=== PATIENT | male | born 1950 | race Caucasian/White ===

== ENCOUNTER 2016-04-12 20:44 | Emergency (ER) | payer OTHER ==
[2016-04-12 20:57] VITALS: BP 114/73
--- NOTE | 2016-04-12 22:16 | ED ---
Laceration/Wound HPI - HPI Summary HPI Summary: 65 M presents with chin laceration this evening. He was opening a wine bottle with a corkscrew when it hit him in the chin. He denies any numbness or tingling. His last tetanus he believes was in 5 years. - History of Current Complaint Stated Complaint: CHIN LAC Time Seen by Provider: 04/12/16 21:32 Pain Intensity: 2 - Allergy/Home Medications Allergies/Adverse Reactions: Allergies Allergy/AdvReac Type Severity Reaction Status Date / Time No Known Allergies Allergy Verified 01/17/12 01:50 PMH/Surg Hx/FS Hx/Imm Hx Endocrine/Hematology History: Denies: Hx Anticoagulant Therapy Cardiovascular History: Denies: Hx Pacemaker/ICD GI History: Comment Only: Other GI Disorders - RLQ PAIN Sensory History: Denies: Hx Contacts or Glasses, Hx Hearing Aid Opthamlomology History: Denies: Hx Contacts or Glasses Psychiatric History: Denies: Hx Panic Disorder - Surgical History Surgery Procedure, Year, and Place: APPENDIX FALL 2011,ORAL SURGERY, SKIN [facility] 2012 Infectious Disease History: No Infectious Disease History: Denies: Traveled Outside the [place] in Last 30 Days - Family History Known Family History: Negative: Cardiac Disease - Social History Occupation: Employed Full-time Alcohol Use: None Substance Use Type: Reports: None Smoking Status (MU): Never Smoked Tobacco Review of Systems Negative: Fever Negative: Chest Pain Negative: Shortness Of Breath Positive: Other - laceration of chin All Other Systems Reviewed And Are Negative: Yes Physical Exam Triage Information Reviewed: Yes Vital Signs On Initial Exam: Initial Vitals Temp Pulse Resp BP Pulse Ox 97.9 F 67 16 114/73 99 04/12/16 20:52 04/12/16 20:52 04/12/16 20:52 04/12/16 20:52 04/12/16 20:52 Vital Signs Reviewed: Yes Appearance: Positive: Well-Appearing Skin: Positive: Warm, Dry, Other - 3 cm skin flap abrasion of chin Head/Face: Positive: Normal Head/Face Inspection Eyes: Positive: Normal, Conjunctiva Clear ENT: Positive: Normal ENT inspection, Pharynx normal, TMs normal Respiratory/Lung Sounds: Positive: Clear to Auscultation, Breath Sounds Present Cardiovascular: Positive: Normal, RRR Procedures - Laceration/Wound Repair 1 Location: Other - chin laceration Description: Irregular Anesthesia: Local, 1.0%, Epi Length, Depth and Shape: 3 cm skin flap Betadine Prep?: No Irrigated w/ Saline (ccs): 100 Laceration/Wound Explored: clean Closure: Single Layer Suture Type: Prolene - 6-0 Number of Sutures: 6 Layer Closure?: No Sterile Dressing Applied?: No Diagnostics - Vital Signs Vital Signs Temp Pulse Resp BP Pulse Ox 04/12/16 20:52 97.9 F 67 16 114/73 99 - Laboratory Lab Statement: Any lab studies that have been ordered have been reviewed, and results considered in the medical decision making process. Laceration Repair Course/Dx - Course Course Of Treatment: 65 M presents with laceration of chin s/p hit with corkscrew, believes tetanus was in the last 5 years, placed 6 sutures of 6-0 prolene in chin, warned about signs of infection to return and potential for scarring, patient agrees with plan - Differential Dx Differental Diagnoses: Abrasion, Avulsion, Laceration - Clinical Impression Provider Diagnoses: Laceration of chin Discharge - Discharge Plan Condition: Good Disposition: HOME Patient Education Materials: Care For Your Stitches (ED) Referrals: Rhiannon Nava NP [Primary Care Provider] - Additional Instructions: Take Tylenol or ibuprofen for pain Keep area clean and dry for [address] neosporin on area once a day Return to ED or primary in 6 days to have sutures removed Return to ED if develop signs of infection such as fever, spreading redness, or pus.
== END 2016-04-12 22:44 | disposition home or self-care (01) ==
LOC: ED 20:44
DX: S01.81XA Laceration without foreign body of other part of head, initial encounter (principal); W27.4XXA Contact with kitchen utensil, initial encounter; Y93.9 Activity, unspecified; Y92.9 Unspecified place or not applicable; Y99.9 Unspecified external cause status
CPT/HCPCS: 12013; 99282